=== PATIENT | male | born 1970 | race Caucasian/White ===

== ENCOUNTER 2022-09-21 15:03 | Outpatient (CLI) | payer OTHER, SELFPAY ==
--- NOTE | 2022-09-21 | CT_ITS ---
WS: [id number] CT CHEST WITH INTRAVENOUS CONTRAST HISTORY: F/U NODULE TECHNIQUE: Contiguous 5 mm axial imaging performed on the thorax. Coronal and sagittal reformats are submitted. All CT scans at [facility] use at least one of these dose optimization techniques: automated exposure control; mA and/or kV adjustment per patient size (includes targeted exams where dose is matched to clinical indication); or iterative reconstruction. CONTRAST: Omnipaque 350; 100 mL IV. DLP: 532.01 mGy.cm COMPARISON: None available. Lungs and central airway: Lungs are well-aerated. No pulmonary mass or nodule identified. Minimal are as of linear atelectasis at the lung bases. Pleura: Normal. No pleural effusion. Heart and pericardium: Normal size heart with no pericardial effusion. Mediastinum and alissa: No mediastinum or hilar adenopathy. Vessels: Normal size aortic and pulmonary artery. No coronary artery calcifications. Chest wall and lower neck: No soft tissue masses. Upper abdomen: Small hiatal hernia. 10 mm nodule LEFT adrenal gland is too small to characterize. Vis ualized liver is negative. Osseous structures: No destructive bone lesions. CT/CT chest w con* [id number] IMPRESSION: 1. No pulmonary mass, pneumonia or nodules are identified. 2. Minimal areas of scarring or atelectasis at the lung bases. 3. No adenopathy. 4. Normal aorta.
[2022-09-21] MEDS: iohexol 350 mg/mL 500 mL Btl (per mL) IV (15:58)
== END 2022-09-21 15:04 | disposition home or self-care (01) ==
LOC: RAD 15:04
PROVIDERS: PCP Internal Medicine; Visit Provider Internal Medicine
DX: Z09 Encounter for follow-up examination after completed treatment for conditions other than malignant neoplasm (principal); R91.1 Solitary pulmonary nodule
CPT/HCPCS: 71260; Q9967